=== PATIENT | male | born 1945 | race Caucasian/White ===

== ENCOUNTER 2020-04-17 09:31 | Emergency (ER) | payer SELFPAY ==
[~2020-04-17] VITALS: Ht 172.7 cm; Wt 64.4 kg
[2020-04-17 09:58] VITALS: Ht 172.7 cm; Wt 64.4 kg
[2020-04-17 11:41] LABS: BASOPHIL % 0.7 % (0-2); PLATELET COUNT 263 x10^3mcL (130-400)
[2020-04-17 11:48] LABS: RED CELL DISTRIBUTION WIDTH 17.4 % (11.5-14.5)
[2020-04-17 11:55] LABS: CALCIUM 8.8 mg/dL (8.5-10.1); CARBON DIOXIDE 26.8 mmol/L (21-32); CHLORIDE SERUM 100 mmol/L (98-107); CREATININE SERUM 0.9 mg/dL (0.7-1.3); GLUCOSE SERUM 132 mg/dL (74-106); POTASSIUM SERUM 3.6 mmol/L (3.5-5.1); SODIUM SERUM 138 mmol/L (136-145)
[2020-04-17 15:13] VITALS: BP 141/76
== END 2020-04-17 15:13 | disposition home or self-care (01) ==
LOC: ED 09:31
PROVIDERS: Emergency Medicine
DX: F41.9 Anxiety disorder, unspecified (principal); I10 Essential (primary) hypertension